=== PATIENT | female | born 1980 | race Hispanic/Latino ===

== ENCOUNTER → 2016-07-02 | Outpatient (CLI) | payer OTHER ==
--- NOTE | 2016-07-02 21:32 | Diagnostic Imaging Report ---
Ultrasound of the right breast limited INDICATION: Right breast lump By history, the patient has a palpable abnormality in the lateral aspect of the right breast. The diagnostic mammogram performed earlier today in conjunction with this study failed to show any sign of malignancy in this area. On this exam, there is no discrete solid or cystic mass identified in the region of the patient's pelvic abnormality. It may be that the palpable abnormality in question is related to fibroglandular tissue alone. However, if clinical concern regarding an underlying abnormality persists, then biopsy should still be considered. IMPRESSION: There is no evidence of malignancy. Recommendations as above. ACR BI-RADS Category 1: Negative. Dictated by: Dictated on workstation # [id number]
--- NOTE | 2016-07-03 19:44 | Diagnostic Imaging Report ---
EXAM: Bilateral diagnostic mammogram. The current study was also evaluated with a Computer Aided Detection (CAD) system. INDICATION: Right breast lump. COMPARISON: There are no prior studies available for comparison. At this time, the patient has a lump in the upper-outer aspect of the right breast. A marker was placed at the area of concern. In this region, there is no primary or secondary sign of malignancy. Even so, I would recommend that ultrasound of the right breast be performed for further study. The fibroglandular tissue in both breasts is heterogeneously dense. This does limit the sensitivity of this exam. There is no primary or secondary sign of malignancy identified. IMPRESSION: There is no evidence for malignancy. In particular, there is no abnormality to account for the palpable mass in the right breast. Ultrasound would be recommend for further study, however. ACR BI-RADS Category 0: Incomplete. (Needs additional imaging evaluation). Result letter will be mailed to the patient. Note: At least 10% of breast cancer is not imaged by mammography. Dictated by: Dictated on workstation # [id number]
== END ==
LOC: RAD 13:13
PROVIDERS: ATTEND Family Medicine
DX: N63 Unspecified lump in breast (principal)
CPT/HCPCS: 77066